=== PATIENT | female | born 1930 | race Caucasian/White ===

== ENCOUNTER → 2016-11-27 | Outpatient (CLI) | payer MEDICARE ==
[2016-11-27 12:00] LABS: BASO # 0.1 10*3/uL (0.0-0.1); BASO % 0.8 % (0.0-1.0); EOS # 0.2 10*3/uL (0.0-0.4); EOS % 3.7 % (1.0-4.0); HEMOGLOBIN 13.1 g/dl (12.0-16.0); LYMPH # 1.6 10*3/uL (1.3-4.4); MEAN CELL VOLUME 92.3 fl (81.0-99.0); MEAN CORPUSCULAR HGB 29.5 pg (27.0-31.0); MEAN PLATELET VOLUME 9.8 fl (9.6-12.3); MONO # 0.5 10*3/uL (0.1-1.0); MONO % 8.1 % (3.0-9.0); NEUT # 3.8 10*3/uL (2.3-7.9); NEUT % 61.1 % (47.0-73.0); PLATELET COUNT AUTOMATED 265 10*3/uL (130-400); RED BLOOD COUNT 4.44 10*6/uL (4.10-5.10); RED CELL DISTRI WIDTH 12.9 % (0-14.5); WHITE BLOOD COUNT 6.2 10*3/uL (4.8-10.8)
[2016-11-27 12:05] LABS: BILIRUBIN NEGATIVE (NEGATIVE); BLOOD NEGATIVE (NEGATIVE); COLOR YELLOW (YELLOW); GLUCOSE NEGATIVE (NEGATIVE); KETONE NEGATIVE (NEGATIVE); LEUKO ESTERASE NEGATIVE (NEGATIVE); NITRITE NEGATIVE (NEGATIVE); PROTEIN NEGATIVE (NEGATIVE); UROBILINOGEN 0.2 E.U./dl (0.2-1.0)
[2016-11-27 12:14] LABS: URINE TP/CRE RATIO 0.1 (<0.21)
[2016-11-27 12:26] LABS: ALBUMIN 3.8 gm/dl (3.1-4.5); MAGNESIUM 2.3 mg/dL (1.5-2.1); PHOSPHOROUS 2.9 mg/dL (2.5-4.9)
[2016-11-27 12:31] LABS: CLARITY SL CLOUDY (CLEAR); HYALINE CAST 15-20; MUCOUS TRACE
[2016-11-27 12:52] LABS: PTH INTACT 192.1 pg/mL (14.0-72.0); VITAMIN D, 25-HYDROXY 36.6 ng/mL (30-100)
== END | disposition home or self-care (01) ==
LOC: LAB 11:37
PROVIDERS: Internal Medicine Nephrology
DX: N18.4 Chronic kidney disease, stage 4 (severe) (principal)

== ENCOUNTER 2017-02-16 16:44 | Emergency (ER) | payer MEDICARE ==
[~2017-02-16] VITALS: Ht 165.1 cm; Wt 71.7 kg
[2017-02-16] MEDS ORDERED: POTASSIUM CHLOR8 ME1 PO (16:49)
[2017-02-16] MEDS ORDERED: FUROSEMIDE40 MG PO (16:49)
[2017-02-16] MEDS ORDERED: CARVEDILOL6.25 MG PO (16:49)
[2017-02-16] MEDS ORDERED: AMLODIPINE BESYL5 MG PO (16:49)
[2017-02-16] MEDS ORDERED: ASPIRIN81 M1 PO (16:50)
[2017-02-16] MEDS ORDERED: CEPHALEXIN500 M1 PO (17:11)
== END 2017-02-16 17:24 | disposition home or self-care (01) ==
LOC: ED 16:44
DX: S61.411A Laceration without foreign body of right hand, initial encounter (principal); Z29.12 Encounter for prophylactic antivenin; Z88.2 Allergy status to sulfonamides; Z79.899 Other long term (current) drug therapy; Z79.82 Long term (current) use of aspirin; W18.39XA Other fall on same level, initial encounter; Y93.89 Activity, other specified; Y92.89 Other specified places as the place of occurrence of the external cause; Y99.8 Other external cause status

== ENCOUNTER → 2017-02-18 | Outpatient (CLI) | payer MEDICARE ==
[~2017-02-18] MED LIST: AMLODIPINE BESYL5 MG PO; ASPIRIN81 M1 PO; CARVEDILOL6.25 MG PO; CEPHALEXIN500 M1 PO; FUROSEMIDE40 MG PO; POTASSIUM CHLOR8 ME1 PO
== END | disposition home or self-care (01) ==
LOC: CT 11:47
DX: S61.411A Laceration without foreign body of right hand, initial encounter (principal); S60.511A Abrasion of right hand, initial encounter; I67.82 Cerebral ischemia; M18.11 Unilateral primary osteoarthritis of first carpometacarpal joint, right hand; R22.0 Localized swelling, mass and lump, head; Z91.81 History of falling; X58.XXXA Exposure to other specified factors, initial encounter; Y93.89 Activity, other specified; Y92.89 Other specified places as the place of occurrence of the external cause; Y99.8 Other external cause status

== ENCOUNTER → 2017-04-20 | Outpatient (CLI) | payer MEDICARE | END | disposition home or self-care (01) | LOC: LAB 12:16 | DX: H47.291 Other optic atrophy, right eye (principal) ==

== ENCOUNTER → 2017-06-04 | Outpatient (CLI) | payer MEDICARE ==
[2017-06-04 11:37] LABS: BASO % 0.7 % (0.0-1.0); EOS # 0.2 10*3/uL (0.0-0.4); EOS % 4.3 % (1.0-4.0); HEMATOCRIT 37.8 % (37.0-47.0); HEMOGLOBIN 12.4 g/dl (12.0-16.0); LYMPH # 1.5 10*3/uL (1.3-4.4); LYMPH % 26.9 % (27.0-41.0); MEAN CELL VOLUME 90.9 fl (81.0-99.0); MEAN CORPUSCULAR HGB 29.8 pg (27.0-31.0); MEAN CORPUSCULAR HGB CONC 32.8 g/dl (33.0-37.0); MEAN PLATELET VOLUME 10.1 fl (9.6-12.3); MONO # 0.5 10*3/uL (0.1-1.0); MONO % 8.8 % (3.0-9.0); NEUT # 3.3 10*3/uL (2.3-7.9); NEUT % 59.1 % (47.0-73.0); PLATELET COUNT AUTOMATED 254 10*3/uL (130-400); RED BLOOD COUNT 4.16 10*6/uL (4.10-5.10); RED CELL DISTRI WIDTH 13.1 % (0-14.5); WHITE BLOOD COUNT 5.5 10*3/uL (4.8-10.8)
[2017-06-04 12:03] LABS: ALBUMIN 3.6 gm/dl (3.1-4.5); CREATININE 1.48 mg/dL (0.55-1.02); MAGNESIUM 2.3 mg/dL (1.5-2.1); PHOSPHOROUS 3.1 mg/dL (2.5-4.9); POTASSIUM 4.1 mmol/L (3.5-5.1)
[2017-06-04 12:45] LABS: VITAMIN D, 25-HYDROXY 32.2 ng/mL (30-100)
== END | disposition home or self-care (01) ==
LOC: LAB 11:18
PROVIDERS: Internal Medicine Nephrology
DX: N18.3 Chronic kidney disease, stage 3 (moderate) (principal); N25.81 Secondary hyperparathyroidism of renal origin

== ENCOUNTER → 2017-12-06 | Outpatient (CLI) | payer MEDICARE ==
[2017-12-06 11:17] LABS: BASO # 0.1 10*3/uL (0.0-0.1); BASO % 1.1 % (0.0-1.0); EOS # 0.2 10*3/uL (0.0-0.4); EOS % 2.8 % (1.0-4.0); LYMPH # 1.4 10*3/uL (1.3-4.4); LYMPH % 25.9 % (27.0-41.0); MEAN CELL VOLUME 92.2 fl (81.0-99.0); MEAN CORPUSCULAR HGB CONC 32.5 g/dl (33.0-37.0); MEAN PLATELET VOLUME 10.3 fl (9.6-12.3); MONO # 0.4 10*3/uL (0.1-1.0); MONO % 7.7 % (3.0-9.0); NEUT # 3.4 10*3/uL (2.3-7.9); NEUT % 62.3 % (47.0-73.0); PLATELET COUNT AUTOMATED 229 10*3/uL (130-400); RED BLOOD COUNT 4.34 10*6/uL (4.10-5.10); RED CELL DISTRI WIDTH 13.3 % (0-14.5); WHITE BLOOD COUNT 5.4 10*3/uL (4.8-10.8)
[2017-12-06 11:37] LABS: ALBUMIN 3.7 gm/dl (3.1-4.5); CREATININE 1.29 mg/dL (0.55-1.02); PHOSPHOROUS 3.3 mg/dL (2.5-4.9); POTASSIUM 4.2 mmol/L (3.5-5.1)
== END | disposition home or self-care (01) ==
LOC: LAB 10:42
PROVIDERS: Internal Medicine Nephrology
DX: N18.3 Chronic kidney disease, stage 3 (moderate) (principal); N25.81 Secondary hyperparathyroidism of renal origin